=== PATIENT | male | born 1995 | race Caucasian/White ===

== ENCOUNTER 2018-02-28 09:39 | Emergency (ER) | payer SELFPAY ==
[2018-02-28 09:40] VITALS: BP 141/84; PULSE 79; RESP 18; TEMP 98.8; O2SAT 100
[2018-02-28] MEDS ORDERED: LIDOCAINE 1%/EPINEPHrine 1:100,000 SOLN 20 ML VIAL INFIL ONE (10:15)
[2018-02-28] MEDS ORDERED: BACT800T5 PO (10:55)
--- NOTE | 2018-02-28 10:55 | PD ---
HPI Chief Complaint: Skin Problem Time Seen by Provider: 09:55 Travel History International Travel<30 days: No Contact w/Intl Traveler<30days: No Traveled to known affect area: No History of Present Illness HPI This is a 22-year-old male here with wound to the right foot 4 days. He reports he believed it was an insect bite. The area has become increasingly more painful and red and started to ooze today. No fever chills. Denies injury or trauma to the area. Reports he awoke with what appeared to be an insect bite. Symptom severity is moderate. Aggravated by palpation of the area. No alleviating factors. PFSH Past Medical History Medical History: Denies Significant Hx Tetanus Vaccination: > 5 Years Influenza Vaccination: No Past Surgical History Surgical History: No Previous Surgery Social History Alcohol Use: Yes (Occ.) Tobacco Use: No Substance Use: No Allergies-Medications (Allergen,Severity, Reaction): Coded Allergies: No Known Drug Allergies (Verified Allergy, Unknown, 02/28/18) Reported Meds & Prescriptions Reported Meds & Active Scripts Active No Active Prescriptions or Reported Medications Review of Systems Except as stated in HPI: all other systems reviewed are Neg General / Constitutional: No: Fever Physical Exam Narrative GENERAL: Alert and well-appearing 22-year-old male SKIN: Warm and dry. HEAD: Normocephalic. EYES: No injection or drainage. NECK: Supple CARDIOVASCULAR: Regular rate and rhythm RESPIRATORY: Breath sounds equal bilaterally. No accessory muscle use. GASTROINTESTINAL: nondistended. MUSCULOSKELETAL: No cyanosis, or edema. Right foot: Small abscess measuring 0.5 cm the dorsal aspect of the foot near the fourth and fifth toe. Area is fluctuant. Small amount of drainage. No surrounding cellulitis. Data Data Last Documented VS Vital Signs Date Time Temp Pulse Resp B/P (MAP) Pulse Ox O2 Delivery O2 Flow Rate FiO2 02/28/18 09:40 98.8 79 18 141/84 (103) 100 Orders Orders Lidocai-Epi 1%-1:100,000 Inj (Xylocaine- (02/28/18 10:15) MDM Medical Decision Making Medical Screen Exam Complete: Yes Emergency Medical Condition: Yes Differential Diagnosis Abscess, infected insect bite, cellulitis, retained foreign body Narrative Course 22-year-old male here with a small abscess to the right foot. Incision and drainage performed. Patient placed on Bactrim. Instructed to follow-up for recheck in 2 days. Procedures Procedure Narrative INCISION AND DRAINAGE OF ABSCESS: The area was prepped and was sterilely draped. A subcutaneous wheal of 1% Xylocaine was used to anesthetize the area properly. A number 11 scalpel was used to make a 2 mm incision across the area of the abscess. The abscess was drained, complex loculations were broken down, and irrigated with normal saline. Cultures were obtained. Sterile dressing applied. Patient advised to have packing removed in two days. Diagnosis Primary Impression: Abscess Referrals: Primary Care Physician Patient Instructions: General Instructions Departure Forms: Tests/Procedures Additional Instructions: Antibiotics as directed. Soak the foot in Epsom salt or soapy water several times per day. Cover with a clean dry dressing Scripts Sulfamethoxazole-Trimethoprim (Bactrim DS) 800-160 Mg Tab 1 TAB PO BID for Infection, #20 TAB 0 Refills Prov: Licha Mcmillan 02/28/18 Disposition: 01 DISCHARGE HOME Condition: Stable Licha Mcmillan Feb 28, 2018 10:55
== END 2018-02-28 11:13 | disposition home or self-care (01) ==
LOC: PHEFT 09:39
DX: L02.611 Cutaneous abscess of right foot (principal)
CPT/HCPCS: 10060